=== PATIENT | male | born 1980 | race Two or more races ===

== ENCOUNTER 2025-04-01 00:15 | Emergency (ER) | payer OTHER, MEDICAID ==
[~2025-04-01] VITALS: Ht 170.2 cm; Wt 90.1 kg
[2025-04-01 02:29] LABS: Basophils # (auto) 0.2 10 ^3/uL (0-0.2); Basophils % (auto) 2.9 % (0.0-2.0); Eosinophils # (auto) 0 10 ^3/uL (0-0.8); Eosinophils % (auto) 0.6 % (0.0-7.0); Hematocrit 42.6 % (41.0-53.0); Hemoglobin 14.7 g/dL (13.5-17.5); Lymphocytes # (auto) 1.4 10 ^3/uL (0.4-5.4); Lymphocytes % (auto) 22.2 % (10.0-50.0); Mean Corpuscular Hemoglobin 30.7 pg (28.0-32.0); Mean Corpuscular Hgb Conc. 34.5 g/dL (32.0-36.0); Mean Corpuscular Volume 88.8 fL (80.0-100.0); Monocytes # (auto) 0.8 10 ^3/uL (0-1.3); Monocytes % (auto) 12.3 % (0.0-12.0); Neutrophils # (auto) 3.9 10 ^3/uL (1.6-8.6); Nucleated Red Blood Cells % 0.2 %; Platelet Count (auto) 117 10^3/uL (140-450); Red Cell Distribution Width 13.6 % (11.8-14.3); White Blood Cell 6.3 10^3/uL (4.4-10.8)
--- NOTE | 2025-04-01 02:32 | ED.PDOC ---
History of Present Illness HPI Comments 44 y/o obese M, with history of DM and occasional alcohol use, presents from urgent care facility for c/o generalized weakness, fatigue, throat irritation, and bilateral eye yellowing. Patient endorses on being at urgent care facility, earlier, for persisting weakness and fatigue symptoms following Covid19 d iagnosis on 03/23/25 and being told to come to the ED after being found with yellowing eyes. He endorses on taking 800mg of Ibuprofen and 1000mg of Tylenol prior to arrival. Denies any chest pain, shortness of breath, abdominal pain or distension, or further associated symptoms. Chief Complaint: General Weakness Time Seen by MD: 02:00 Reviewed Notes: Nurses Notes, Medications, Allergies Allergies: Coded Allergies: NO KNOWN ALLERGIES (Unverified , 04/01/25) Information Source: Patient Mode of Arrival: Ambulatory Severity: Moderate Timing: Hours Duration: Since onset Prehospital treatment: Other (see HPI) Review of Systems: REVIEW OF SYSTEMS: Fatigue. No fever, no chills. HEENT: Yellowing eyes. Throat irritation. no earache, no congestion, no neck pain. Cardiac: No chest pain. No palpitations. Lungs: No shortness of breath, no cough. GI: No nausea, no vomiting, no diarrhea, no constipation, no abdominal pain : No dysuria, frequency, or urgency. No hematuria. Musculoskeletal: No joint pain , no joint swelling, no extremity edema. Skin: No rash, no itching. Neuro: Weakness. No headache, no dizziness Vital Signs Vital Signs Date Time Temp Pulse Resp B/P (MAP) Pulse Ox O2 Delivery O2 Flow Rate FiO2 04/01/25 00:49 97.8 108 16 113/81 (92) 93 97.8 Physical Exam General: Awake, alert and oriented. No acute distress. Skin: Skin in warm, dry and intact. Appropriate color for ethnicity. HEENT: Bilateral sclera icterus. The head is normocephalic and atraumatic. Conjunctivae are clear without exudates or hemorrhage. EOM are intact. No signs of nystagmus. Eyelids are normal in appearance without swelling or lesions. Oral mucosa is pink and moist Neck: The neck is supple with normal range of motion. No JVD. Cardiac: Heart rate and rhythm are normal. No murmurs, gallops, or rubs are auscultated. Respiratory: No signs of respiratory distress. Lung sounds are clear in all lobes bilaterally without rales, rhonchi, or wheezes. Abdominal: No right upper quadrant tenderness. Abdomen is soft, non-tender without distention, guarding or rigidity. Bowel sounds are present and normoactive in all four quadrants. Extremities: Upper and lower extremities are atraumatic in appearance without deformity or edema. Neurological: The patient is awake, alert and oriented to person, place, and time with normal speech. Speech is clear. There is no facial asymmetry. Psychiatric: Appropriate mood and affect. Good judgement and insight. Past Medical History PAST MEDICAL HISTORY: DM Surgical History: Denies all surgeries Family History Family History: Unknown Social History Smoker: Non-Smoker Alcohol: Occasionally Drugs: Denies Drug Use Lives In: Home Was a procedure done? Was a procedure done?: No Differential Dx Considerations may include: liver failure, liver cirrhosis, viral syndrome, electrolyte imbalance, dehydrati on, among others X-Ray, Labs, Meds, VS Vital Signs Date Time Temp Pulse Resp B/P (MAP) Pulse Ox O2 Delivery O2 Flow Rate FiO2 04/01/25 00:49 97.8 108 16 113/81 (92) 93 97.8 Lab Test 04/01/25 02:20 Range/Units White Blood Count 6.3 4.4-10.8 10^3/uL Red Blood Count 4.80 4.5-5.90 10^6/uL Hemoglobin 14.7 13.5-17.5 g/dL Hematocrit 42.6 41.0-53.0 % Mean Corpuscular Volume 88.8 80.0-100.0 fL Mean Corpuscular Hemoglobin 30.7 28.0-32.0 pg Mean Corpuscular Hemoglobin Concent 34.5 32.0-36.0 g/dL Red Cell Distribution Width 13.6 11.8-14.3 % Platelet Count 117 L 140-450 10^3/uL Mean Platelet Volume 9.9 6.9-10.8 fL Neutrophils (%) (Auto) 62.0 37.0-80.0 % Lymphocytes (%) (Auto) 22.2 10.0-50.0 % Monocytes (%) (Auto) 12.3 H 0.0-12.0 % Eosinophils (%) (Auto) 0.6 0.0-7.0 % Basophils (%) (Auto) 2.9 H 0.0-2.0 % Neutrophils # (Auto) 3.9 1.6-8.6 10 ^3/uL Lymphocytes # (Auto) 1.4 0.4-5.4 10 ^3/uL Monocytes # (Auto) 0.8 0-1.3 10 ^3/uL Eosinophils # (Auto) 0 0-0.8 10 ^3/uL Basophils # (Auto) 0.2 0-0.2 10 ^3/uL Nucleated Red Blood Cells 0.2 % Prothrombin Time 11.8 9.3-11.8 sec Prothrombin Time INR 1.13 0.9-1.15 Sodium Level 126 L 136-145 mmol/L Potassium Level 3.7 3.5-5.1 mmol/L Chloride Level 89 L 98-107 mmol/L Carbon Dioxide Level 29 20-31 mmol/L Anion Gap 8 5-15 Blood Urea Nitrogen 8 L 9-23 mg/dL Creatinine 0.85 0.700-1.30 mg/dL Glomerular Filtration Rate Calc 111 >90 mL/min BUN/Creatinine Ratio 9.4 L 10.0-20.0 Serum Glucose 330 H 74-106 mg/dL Lactic Acid Level 1.6 0.4-2.0 mmol/L Calcium Level 8.1 L 8.7-10.4 mg/dL Total Bilirubin 9.4 H 0.2-1.0 mg/dL Aspartate Amino Transferase (AST) 95 H 13-40 U/L Alanine Aminotransferase (ALT) 107 H 7-40 U/L Alkaline Phosphatase 193 H 46-116 U/L Total Protein 6.8 5.7-8.2 g/dL Albumin 3.4 3.2-4.8 g/dL Lipase 52 12-53 U/L Acetaminophen Level 5.0 L 10.0-20.0 UG/ML Plasma/Serum Blood Alcohol Pending [address] [address] Ph: [phone] DIAGNOSTIC IMAGING Diagnostic Imaging Report : [id number] Signed PATIENT: MARY KINGSLEY ACCT: [id number] UNIT: [id number] : 1980 LOC: ER ROOM / BED: / AGE / SEX: 44 / M ADM STATUS: REG ER SERVICE DT: 05/207 ORDERING PHYSICIAN: ALONZO KULKARNI MD PROCEDURE(s): ABDL - ABDOMEN LIMITED REASON: Right upper quadrant ultrasound, jaundice ORDER NUMBER(s): [id number], ACCESSION NUMBER(s): [id number] INDICATION: Right upper quadrant ultrasound, jaundice TECHNIQUE: Multiple real-time sonographic images were obtained of the right upper quadrant. COMPARISON: None FINDINGS: The liver demonstrates diffusely echogenic echotexture without focal mass lesions. The liver measures 20.2 cm. Normal hepatopetal portal flow identified. No evidence of pleural effusion or abdominal ascites. There is no intrahepatic or extrahepatic ductal dilatation. The common duct measures 0.4 cm. The gallbladder is contracted, without evidence of stone or sludge. The gallbladder wall measures 0.4 cm and is within normal limits. Negative sonographic salinas's sign. The right kidney measures 11.6 cm. The right kidney is normal in contour, size, and shape. The echogenicity is normal. There is no hydronephrosis. The pancreas is not well visualized due to overlying bowel gas. IMPRESSION: 1. Hepatic steatosis. Otherwise, unremarkable right upper quadrant sonogram. ATED BY: MARK ENRIQUEZ MD DICTATED DATE/TIME: 04/01/25303 SIGNED BY: MARK ENRIQUEZ MD SIGNED DATE/TIME: 04/01/25303 CC: [place] [id number] Ph: [phone] DIAGNOSTIC IMAGING Diagnostic Imaging Report : [id number] Signed PATIENT: MARY KINGSLEY ACCT: [id number] UNIT: [id number] : 1980 LOC: ER ROOM / BED: / AGE / SEX: 44 / M ADM STATUS: REG ER SERVICE 7 ORDERING PHYSICIAN: ALONZO KULKARNI MD PROCEDURE(s): CXR1 - CHEST XRAY 1 VIEW REASON: Generalized weakness ORDER NUMBER(s): [id number], ACCESSION NUMBER(s): [id number] CHEST RADIOGRAPH Indication: Generalized weakness Technique: Single frontal view of the chest was obtained COMPARISON: None FINDINGS: Lines and Tubes: None Lungs: Clear Pleura: No effusion. No pneumothorax. Cardiomediastinal contours: Unremarkable Bones: Unremarkable IMPRESSION: 1. No acute disease. ATED BY: MARK ENRIQUEZ MD DICTATED DATE/TIME: 04/01/25304 SIGNED BY: MARK ENRIQUEZ MD SIGNED DATE/TIME: 04/01/25304 CC: Time of 1ST Reevaluation: 02:30 Reevaluation 1ST: Unchanged Patient Education/Counseling: Other (Need for admission/transfer) Family Education/Counseling: No Family Present Departure 1 Departure Time of Disposition: 04:55 Impression: Primary Impression: Hepatic steatosis Additional Impressions: Hyperglycemia Thrombocytopenia Transaminitis Hyperbilirubinemia Disposition: 30 STILL A PATIENT Condition: Stable Comments 44-year-old male presents to the emergency department with painless jaundice Ultrasound shows hepatic steatosis Patient has transaminitis Patient is stable during the ED observation. Case was discussed with [place] physician Dr. Martínez who accepts patient for transfer to [facility] Case#[id number] Patient pending transfer to [facility]. Critical Care Note Critical Care Time?: No Stability Stability form required: No Heart Score Heart Score: Heart Score Response (Comments) Value History N/A 0 EKG N/A 0 Age N/A 0 Risk Factors N/A 0 Troponin N/A 0 Total 0 I personally scribed for ALONZO KULKARNI MD ([email or web address]) on 04/01/25 at 02:32. Electronically submitted by Bob Gold ([email or web address]). I personally scribed for ALONZO KULKARNI MD ([email or web address]) on 04/01/25 at 04:26. Electronically submitted by Bob Gold ([email or web address]). ALONZO KULKARNI MD April 01, 2025 02:32
[2025-04-01 02:43] LABS: INR 1.13 (0.9-1.15); Prothrombin Time 11.8 sec (9.3-11.8)
[2025-04-01 02:49] LABS: Albumin 3.4 g/dL (3.2-4.8); Anion Gap 8 (5-15); BUN/Creatinine Ratio 9.4 (10.0-20.0); Carbon Dioxide 29 mmol/L (20-31); Lipase 52 U/L (12-53); Potassium 3.7 mmol/L (3.5-5.1); Total Protein 6.8 g/dL (5.7-8.2)
--- NOTE | 2025-04-01 03:06 | DVH ---
INDICATION: Right upper quadrant ultrasound, jaundice TECHNIQUE: Multiple real-time sonographic images were obtained of the right upper quadrant. COMPARISON: None FINDINGS: The liver demonstrates diffusely echogenic echotexture without focal mass lesions. The live r measures 20.2 cm. Normal hepatopetal portal flow identified. No evidence of pleural effusion or ab dominal ascites. There is no intrahepatic or extrahepatic ductal dilatation. The common duct measures 0.4 cm. The gallbladder is contracted, without evidence of stone or sludge. The gallbladder wall measures 0.4 cm and is within normal limits. Negative sonographic salinas's sign. The right kidney measures 11.6 cm. The right kidney is normal in contour, size, and shape. The echoge nicity is normal. There is no hydronephrosis. The pancreas is not well visualized due to overlying bowel gas. IMPRESSION: 1. Hepatic steatosis. Otherwise, unremarkable right upper quadrant sonogram.
--- NOTE | 2025-04-01 03:07 | DVH ---
CHEST RADIOGRAPH Indication: Generalized weakness Technique: Single frontal view of the chest was obtained COMPARISON: None FINDINGS: Lines and Tubes: None Lungs: Clear Pleura: No effusion. No pneumothorax. Cardiomediastinal contours: Unremarkable Bones: Unremarkable IMPRESSION: 1. No acute disease.
[2025-04-01 03:26] LABS: Alanine Aminotransferase 107 U/L (7-40); Alkaline Phosphatase 193 U/L (46-116); Aspartate Aminotransferase 95 U/L (13-40); Bilirubin, Total 9.4 mg/dL (0.2-1.0); Blood Urea Nitrogen 8 mg/dL (9-23); Calcium 8.1 mg/dL (8.7-10.4); Chloride 89 mmol/L (98-107); Glucose 330 mg/dL (74-106); Sodium 126 mmol/L (136-145)
[2025-04-01 06:36] LABS: Blood Alcohol 3.6 mg/dL (<10)
[2025-04-01 07:45] VITALS: BP 138/86; PULSE 103; RESP 18; TEMP 97.8; O2SAT 92
== END 2025-04-01 07:47 | disposition short-term general hospital (02) ==
LOC: ER 00:15
DX: K76.0 Fatty (change of) liver, not elsewhere classified (principal); D69.6 Thrombocytopenia, unspecified; E11.65 Type 2 diabetes mellitus with hyperglycemia; R74.01 Elevation of levels of liver transaminase levels; E80.6 Other disorders of bilirubin metabolism; E66.9 Obesity, unspecified
CPT/HCPCS: 36415; 71045; 76705; 80053; 80320; 80329; 83605; 83690; 85025; 85610; 87040